=== PATIENT | male | born 1995 | race Asian ===

== ENCOUNTER 2018-05-12 11:38 | Inpatient (IN) | payer OTHER ==
[2018-05-12 12:09] LABS: HEMATOCRIT 48.9 % (42.0-52.0); HEMOGLOBIN 16.4 g/dl (13.5-17.5); MEAN CORPUSCULAR HEMOGLOBIN 29.8 pg (27.0-33.0); MEAN CORPUSCULAR HGB CONC 33.5 g/dl (32.0-36.5); MEAN CORPUSCULAR VOLUME 88.7 fl (80.0-96.0); PLATELET COUNT, AUTOMATED 239 10^3/uL (150-450); RED BLOOD COUNT 5.51 10^6/uL (4.30-6.10); RED CELL DISTRIBUTION WIDTH 11.6 % (11.5-14.5); WHITE BLOOD COUNT 10.8 10^3/uL (4.0-10.0)
[2018-05-12 12:26] LABS: AMPHETAMINES LEVEL URINE NEGATIVE (NEGATIVE); BARBITURATES URINE NEGATIVE (NEGATIVE); BENZODIAZEPINES URINE NEGATIVE (NEGATIVE); CANNABINOIDS URINE NEGATIVE (NEGATIVE); COCAINE METABOLITE URINE NEGATIVE (NEGATIVE); METHADONE URINE NEGATIVE (NEGATIVE); OPIATES URINE NEGATIVE (NEGATIVE); PHENCYCLIDINE URINE NEGATIVE (NEGATIVE)
[2018-05-12 12:37] LABS: ALBUMIN 4.6 GM/DL (3.2-5.2); ALBUMIN/GLOBULIN RATIO 1.28 (1.00-1.93); ALKALINE PHOSPHATASE 72 U/L (45-117); ALT/SGPT 32 U/L (12-78); ANION GAP 9 MEQ/L (8-16); AST/SGOT 21 U/L (7-37); BILIRUBIN,DIRECT 0.2 MG/DL (0.0-0.2); BILIRUBIN,TOTAL 0.7 MG/DL (0.2-1.0); BLOOD UREA NITROGEN 13 MG/DL (7-18); CALCIUM LEVEL 8.9 MG/DL (8.5-10.1); CARBON DIOXIDE LEVEL 27 MEQ/L (21-32); CHLORIDE LEVEL 108 MEQ/L (98-107); CREATININE FOR GFR 1.04 MG/DL (0.70-1.30); ETHYL ALCOHOL (ETHANOL) 0.005 % (0.000-0.010); GLOMERULAR FILTRATION RATE > 60.0 (>60); GLUCOSE, FASTING 92 MG/DL (70-100); POTASSIUM SERUM 3.8 MEQ/L (3.5-5.1); SALICYLATE LEVEL < 1.7 MG/DL (5.0-30.0); SODIUM LEVEL 144 MEQ/L (136-145); THYROID STIMULATING HORMONE 0.781 uIU/ML (0.358-3.740); TOTAL PROTEIN 8.2 GM/DL (6.4-8.2)
[2018-05-12 12:40] LABS: ACETAMINOPHEN LEVEL < 2.0 UG/ML (10.0-30.0)
[2018-05-12] MEDS ORDERED: MAALOX 30 ML SUSP *UDC PO (18:00)
[2018-05-12] MEDS ORDERED: MOM 30ML SUSPENSION UDC PO (18:00)
[2018-05-13] MEDS: ACETAMINOPHEN TAB 650MG DOSE (2X325MG) PO (15:47)
[2018-05-14] MEDS: SERTRALINE HCL 50 MG TAB PO (16:13)
[2018-05-14] MEDS ORDERED: hydrOXYzine 50 MG TAB PO (16:15)
[2018-05-15] MEDS: SERTRALINE HCL 50 MG TAB PO (09:24)
[2018-05-16] MEDS: SERTRALINE HCL 25 MG TABLET PO (08:42)
[2018-05-17] MEDS: SERTRALINE HCL 25 MG TABLET PO (09:05)
[2018-05-18] MEDS: VENLAFAXINE **XR** 37.5 MG CAPSULE PO (09:16)
[2018-05-19] MEDS: VENLAFAXINE **XR** 37.5 MG CAPSULE PO (08:38)
[2018-05-20] MEDS: VENLAFAXINE **XR** 75MG CAPSULE PO (09:35)
[2018-05-21] MEDS: VENLAFAXINE **XR** 75MG CAPSULE PO (08:37)
[2018-05-22] MEDS: VENLAFAXINE **XR** 75MG CAPSULE PO (08:14)
[2018-05-23] MEDS: VENLAFAXINE **XR** 75MG CAPSULE PO (08:21)
[2018-05-24] MEDS: VENLAFAXINE **XR** 75MG CAPSULE PO (08:07)
[2018-05-24] MEDS: ACETAMINOPHEN TAB 650MG DOSE (2X325MG) PO (21:19)
[2018-05-24] MEDS: traZODone 50 MG TAB PO (21:52)
[2018-05-25] MEDS: VENLAFAXINE **XR** 75MG CAPSULE PO (08:11)
[2018-05-25] MEDS: ACETAMINOPHEN TAB 650MG DOSE (2X325MG) PO ×2 (15:30→21:32)
[2018-05-25] MEDS: diphenhydrAMINE 50 MG CAP PO (21:31)
[2018-05-26] MEDS: VENLAFAXINE **XR** 75MG CAPSULE PO (08:21)
[2018-05-26] MEDS ORDERED: traZODone 50 MG TAB PO (13:15)
[2018-05-26] MEDS ORDERED: NICOTINE POLACRILEX 2 MG GUM PO ×3 (14:45→16:15)
[2018-05-26] MEDS: diphenhydrAMINE 50 MG CAP PO (21:26)
[2018-05-27] MEDS: VENLAFAXINE **XR** 75MG CAPSULE PO (08:25)
== END 2018-05-27 10:45 | disposition home or self-care (01) | DRG 885 ==
LOC: M PSY 05-17 08:32 → M ED 11:38 → M ED INP 14:09 → M PSY 15:16
DX: F33.9 Major depressive disorder, recurrent, unspecified (principal); R45.851 Suicidal ideations; F41.1 Generalized anxiety disorder; Z79.899 Other long term (current) drug therapy

== ENCOUNTER 2018-06-08 16:58 | Inpatient (IN) | payer OTHER ==
[2018-06-08 17:44] LABS: HEMATOCRIT 49.2 % (42.0-52.0); HEMOGLOBIN 16.8 g/dl (13.5-17.5); MEAN CORPUSCULAR HEMOGLOBIN 30.1 pg (27.0-33.0); MEAN CORPUSCULAR HGB CONC 34.1 g/dl (32.0-36.5); PLATELET COUNT, AUTOMATED 243 10^3/uL (150-450); RED BLOOD COUNT 5.59 10^6/uL (4.30-6.10); RED CELL DISTRIBUTION WIDTH 11.7 % (11.5-14.5)
[2018-06-08 18:16] LABS: AMPHETAMINES LEVEL URINE NEGATIVE (NEGATIVE); BARBITURATES URINE NEGATIVE (NEGATIVE); BENZODIAZEPINES URINE NEGATIVE (NEGATIVE); CANNABINOIDS URINE NEGATIVE (NEGATIVE); COCAINE METABOLITE URINE NEGATIVE (NEGATIVE); METHADONE URINE NEGATIVE (NEGATIVE); OPIATES URINE NEGATIVE (NEGATIVE); PHENCYCLIDINE URINE NEGATIVE (NEGATIVE)
[2018-06-08 18:23] LABS: ALBUMIN 4.8 GM/DL (3.2-5.2); ALBUMIN/GLOBULIN RATIO 1.26 (1.00-1.93); ALKALINE PHOSPHATASE 64 U/L (45-117); ALT/SGPT 31 U/L (12-78); ANION GAP 12 MEQ/L (8-16); AST/SGOT 16 U/L (7-37); BILIRUBIN,DIRECT 0.1 MG/DL (0.0-0.2); BILIRUBIN,TOTAL 0.6 MG/DL (0.2-1.0); BLOOD UREA NITROGEN 16 MG/DL (7-18); CALCIUM LEVEL 8.7 MG/DL (8.5-10.1); CARBON DIOXIDE LEVEL 21 MEQ/L (21-32); CHLORIDE LEVEL 109 MEQ/L (98-107); CREATININE FOR GFR 0.96 MG/DL (0.70-1.30); ETHYL ALCOHOL (ETHANOL) < 0.003 % (0.000-0.010); GLOMERULAR FILTRATION RATE > 60.0 (>60); GLUCOSE, FASTING 91 MG/DL (70-100); SALICYLATE LEVEL 2.3 MG/DL (5.0-30.0); SODIUM LEVEL 142 MEQ/L (136-145); TOTAL PROTEIN 8.6 GM/DL (6.4-8.2)
[2018-06-08 18:26] LABS: ACETAMINOPHEN LEVEL < 2.0 UG/ML (10.0-30.0)
[2018-06-08] MEDS ORDERED: MAALOX 30 ML SUSP *UDC PO (23:45)
[2018-06-08] MEDS ORDERED: ACETAMINOPHEN TAB 650MG DOSE (2X325MG) PO (23:45)
[2018-06-08] MEDS ORDERED: diphenhydrAMINE 25 MG CAP PO (23:45)
[2018-06-08] MEDS ORDERED: MOM 30ML SUSPENSION UDC PO (23:45)
[2018-06-09] MEDS: VENLAFAXINE **XR** 75MG CAPSULE PO (08:08)
[2018-06-09] MEDS: diphenhydrAMINE 50 MG CAP PO (20:33)
[2018-06-10] MEDS: VENLAFAXINE **XR** 75MG CAPSULE PO (07:55)
[2018-06-10] MEDS: diphenhydrAMINE 50 MG CAP PO (20:48)
[2018-06-11] MEDS: VENLAFAXINE **XR** 75MG CAPSULE PO (08:23)
== END 2018-06-11 11:25 | disposition home or self-care (01) | DRG 885 ==
LOC: M PSY 06-09 → M ED 16:58 → M ED INP 19:54
DX: F33.9 Major depressive disorder, recurrent, unspecified (principal); R45.851 Suicidal ideations; F41.1 Generalized anxiety disorder; G47.00 Insomnia, unspecified

== ENCOUNTER 2018-07-14 21:33 | Inpatient (IN) | payer OTHER ==
[2018-07-14 22:22] LABS: HEMATOCRIT 44.4 % (42.0-52.0); HEMOGLOBIN 14.7 g/dl (13.5-17.5); MEAN CORPUSCULAR HEMOGLOBIN 29.5 pg (27.0-33.0); MEAN CORPUSCULAR HGB CONC 33.1 g/dl (32.0-36.5); MEAN CORPUSCULAR VOLUME 89.2 fl (80.0-96.0); PLATELET COUNT, AUTOMATED 210 10^3/uL (150-450); RED BLOOD COUNT 4.98 10^6/uL (4.30-6.10); RED CELL DISTRIBUTION WIDTH 11.9 % (11.5-14.5); WHITE BLOOD COUNT 6.9 10^3/uL (4.0-10.0)
[2018-07-14 22:50] LABS: AMPHETAMINES LEVEL URINE NEGATIVE (NEGATIVE); BARBITURATES URINE NEGATIVE (NEGATIVE); BENZODIAZEPINES URINE NEGATIVE (NEGATIVE); CANNABINOIDS URINE NEGATIVE (NEGATIVE); COCAINE METABOLITE URINE NEGATIVE (NEGATIVE); METHADONE URINE NEGATIVE (NEGATIVE); OPIATES URINE NEGATIVE (NEGATIVE); PHENCYCLIDINE URINE NEGATIVE (NEGATIVE)
[2018-07-14 23:01] LABS: ACETAMINOPHEN LEVEL < 2.0 UG/ML (10.0-30.0); ALBUMIN 4.4 GM/DL (3.2-5.2); ALBUMIN/GLOBULIN RATIO 1.33 (1.00-1.93); ALKALINE PHOSPHATASE 68 U/L (45-117); ALT/SGPT 31 U/L (12-78); ANION GAP 6 MEQ/L (8-16); AST/SGOT 13 U/L (7-37); BILIRUBIN,DIRECT 0.1 MG/DL (0.0-0.2); BILIRUBIN,TOTAL 0.5 MG/DL (0.2-1.0); BLOOD UREA NITROGEN 12 MG/DL (7-18); CALCIUM LEVEL 8.5 MG/DL (8.5-10.1); CARBON DIOXIDE LEVEL 31 MEQ/L (21-32); CHLORIDE LEVEL 106 MEQ/L (98-107); CREATININE FOR GFR 0.92 MG/DL (0.70-1.30); ETHYL ALCOHOL (ETHANOL) < 0.003 % (0.000-0.010); GLOMERULAR FILTRATION RATE > 60.0 (>60); GLUCOSE, FASTING 90 MG/DL (70-100); POTASSIUM SERUM 3.8 MEQ/L (3.5-5.1); SALICYLATE LEVEL < 1.7 MG/DL (5.0-30.0); SODIUM LEVEL 143 MEQ/L (136-145); TOTAL PROTEIN 7.7 GM/DL (6.4-8.2)
[2018-07-14] MEDS ORDERED: MAALOX 30 ML SUSP *UDC PO (23:45)
[2018-07-14] MEDS ORDERED: MOM 30ML SUSPENSION UDC PO (23:45)
[2018-07-15] MEDS: VENLAFAXINE **XR** 75MG CAPSULE PO (08:52)
[2018-07-16] MEDS: VENLAFAXINE **XR** 75MG CAPSULE PO (08:20)
[2018-07-17] MEDS: VENLAFAXINE **XR** 75MG CAPSULE PO (08:45)
[2018-07-18] MEDS: VENLAFAXINE **XR** 75MG CAPSULE PO (08:19)
[2018-07-19] MEDS ORDERED: PILL CRUSHER/CUTTER 1 EACH XX (02:30)
[2018-07-19] MEDS: VENLAFAXINE **XR** 75MG CAPSULE PO (08:10)
[2018-07-20] MEDS: VENLAFAXINE **XR** 75MG CAPSULE PO (08:19)
[2018-07-21] MEDS: VENLAFAXINE **XR** 75MG CAPSULE PO (08:03)
[2018-07-21] MEDS: ACETAMINOPHEN TAB 650MG DOSE (2X325MG) PO (20:08)
[2018-07-21] MEDS: traZODone 100 MG TAB PO (20:08)
[2018-07-22] MEDS: VENLAFAXINE **XR** 75MG CAPSULE PO (08:09)
[2018-07-22] MEDS: ACETAMINOPHEN TAB 650MG DOSE (2X325MG) PO (08:10)
[2018-07-23] MEDS ORDERED: ARIPiprazole 10 MG TAB PO (09:00)
== END 2018-07-22 13:10 | disposition home or self-care (01) | DRG 885 ==
LOC: M PSY 07-15 08:15 → M ED 21:33 → M ED INP 23:39
DX: F33.2 Major depressive disorder, recurrent severe without psychotic features (principal); R45.851 Suicidal ideations; F41.1 Generalized anxiety disorder; G47.00 Insomnia, unspecified; Z79.899 Other long term (current) drug therapy

== ENCOUNTER → 2018-09-04 | Outpatient (CLI) | payer OTHER | LOC: M SLEEP 19:30 | DX: R40.0 Somnolence (principal) | CPT/HCPCS: 95810 ==

== ENCOUNTER 2018-11-03 22:51 | Inpatient (IN) | payer OTHER ==
[~2018-11-03] VITALS: Ht 180.3 cm; Wt 86.1 kg
[~2018-11-03 22:51] MED LIST: ARIP10TAB PO; ARIP5TA PO; DIPH50CA PO; SERT25TA PO; TRAZ-160 PO; TRAZ10TA PO; TRAZO50TA PO; TYLE325T5 PO; TYLE500T78 PO; VENL150C43 PO; VENL75CA47 PO
[2018-11-03 23:59] LABS: HEMATOCRIT 45.7 % (42.0-52.0); HEMOGLOBIN 15.5 g/dl (13.5-17.5); MEAN CORPUSCULAR HEMOGLOBIN 30.2 pg (27.0-33.0); MEAN CORPUSCULAR HGB CONC 33.9 g/dl (32.0-36.5); MEAN CORPUSCULAR VOLUME 88.9 fl (80.0-96.0); PLATELET COUNT, AUTOMATED 264 10^3/uL (150-450); RED BLOOD COUNT 5.14 10^6/uL (4.30-6.10); WHITE BLOOD COUNT 8.3 10^3/uL (4.0-10.0)
[2018-11-04 00:30] LABS: AMPHETAMINES LEVEL URINE NEGATIVE (NEGATIVE); BARBITURATES URINE NEGATIVE (NEGATIVE); BENZODIAZEPINES URINE NEGATIVE (NEGATIVE); CANNABINOIDS URINE NEGATIVE (NEGATIVE); COCAINE METABOLITE URINE NEGATIVE (NEGATIVE); METHADONE URINE NEGATIVE (NEGATIVE); OPIATES URINE NEGATIVE (NEGATIVE); PHENCYCLIDINE URINE NEGATIVE (NEGATIVE)
[2018-11-04 00:45] LABS: ACETAMINOPHEN LEVEL < 2.0 UG/ML (10.0-30.0); ALBUMIN 4.2 GM/DL (3.2-5.2); ALT/SGPT 42 U/L (12-78); BILIRUBIN,DIRECT 0.1 MG/DL (0.0-0.2); BILIRUBIN,TOTAL 0.4 MG/DL (0.2-1.0); BLOOD UREA NITROGEN 14 MG/DL (7-18); CALCIUM LEVEL 8.4 MG/DL (8.5-10.1); CARBON DIOXIDE LEVEL 30 MEQ/L (21-32); CHLORIDE LEVEL 106 MEQ/L (98-107); CREATININE FOR GFR 0.95 MG/DL (0.70-1.30); ETHYL ALCOHOL (ETHANOL) < 0.003 % (0.000-0.010); GLOMERULAR FILTRATION RATE > 60.0 (>60); GLUCOSE, FASTING 93 MG/DL (70-100); POTASSIUM SERUM 4.2 MEQ/L (3.5-5.1); SALICYLATE LEVEL 3.2 MG/DL (5.0-30.0); SODIUM LEVEL 141 MEQ/L (136-145); TOTAL PROTEIN 7.5 GM/DL (6.4-8.2)
[2018-11-04] MEDS ORDERED: traZODone 100 MG TAB PO PRN (01:15)
[2018-11-04] MEDS ORDERED: MAALOX 30 ML SUSP *UDC PO PRN (01:15)
[2018-11-04] MEDS ORDERED: MOM 30ML SUSPENSION UDC PO PRN (01:15)
[2018-11-04] MEDS ORDERED: ACETAMINOPHEN TAB 650MG DOSE (2X325MG) PO PRN (01:15)
[2018-11-04] MEDS ORDERED: TRAZ-163 PO (01:28)
[2018-11-04] MEDS ORDERED: VENL75CA47 PO (01:28)
[2018-11-04] MEDS ORDERED: ABIL10TA9 PO (01:28)
[2018-11-04 01:53] VITALS: BP 137/82
[2018-11-04 06:47] VITALS: BP 124/60
[2018-11-04] MEDS: VENLAFAXINE **XR** 75MG CAPSULE PO SCH (09:27)
[2018-11-04] MEDS: ARIPiprazole 10 MG TAB PO SCH (09:28)
--- NOTE | 2018-11-04 10:41 | HPEPDOC ---
[facility] Medical History & Physical Date of Admission Nov 04, 2018 History and Physical PCP: [facility] ATTENDING: Dr. Jackie Leblanc HPI: 23 yo M admitted to [facility] for unspecified depressive disorder, being medically examined today. No acute medical complaints today. Denies any fevers, chills, weakness, fatigue, ESTRADA, CP, SOB, cough, palpitations, abdominal pain, N/V/D or changes in bowel or bladder habits. PMHx: Anxiety Depression History of SI Insomnia PSHX: Denies SOCHX: Resides in: [facility], from [place] Marital Status: Single Kids: None Employment: Active duty Tobacco use: Denies ETOH: One to 2 per week Illicit Drugs: Denies IV Drug Use: Denies Tattoos done unprofessionally: Denies FAMHX: Mother: Alive, well Father: Alive, well Siblings: One sister Alive, well Children: None Unexpected deaths due to medical reasons: None. ROS: As noted in HPI, otherwise 11pt ROS of systems reviewed and unremarkable. PE: GEN: 23 yo M, appears stated age. Well-nourished, well developed. No acute distress. Alert and oriented x 3. Pleasant, interactive. HEENT: Normocephalic, atraumatic. Pupils are equal, round, and reactive to light. Extraocular movements are intact. No nystagmus appreciated. Sclera are no nicteric. Conjunctiva without injection. Nose midline. Nasal turbinates without bogginess. EACs both patent BL. TMs both visualized and lala with good cone of light, no bulging or erythema. No facial asymmetry. Moist mucous membranes. Dentition fair. Pharynx pink and moist, no cobblestoning. Neck supple, trachea midline. No lymphadenopathy or thyromegaly appreciated. CHEST: Regular rate and rhythm, +S1, +S2 LUNGS: Clear to auscultation bilaterally. No wheezes, rales, or rhonchi. Breathing appears symmetric and easy. Patient is speaking in full sentences. No accessory muscle use. ABD: Round, soft, non-tender, non-distended. +Bowel sounds throughout. No rebound or guarding. No costovertebral angle tenderness. EXT: Pulses 2+ bilaterally dorsalis pedis and radial. No lower extremity edema appreciated. SKIN: [place], dry, warm. Capillary refill <2sec. No rashes. NEURO: Alert and oriented x 3. Cranial nerves III-XII are intact. No focal deficits appreciated. EKG: SINUS RHYTHM WITH SINUS ARRHYTHMIA Normal Electronically Signed On 06-10-2018 17:04:22 EDT by Roosevelt Escobedo&Vimal: 23 yo M admitted to [facility] for unspecified depressive disorder 1. Psych. Plan per Psychiatry. EKG on file. 2. Follow up with PCP on discharge. 3. Staff member Ed present throughout exam. Vital Signs Vital Signs Date Time Temp Pulse Resp B/P (MAP) Pulse Ox O2 Delivery O2 Flow Rate FiO2 11/04/18 06:47 98.4 61 16 124/60 (81) 11/04/18 00:53 100 Room Air Laboratory Data Labs 24H Laboratory Tests 2 11/03/18 23:44: Nucleated Red Blood Cells % (auto) 0.0, Anion Gap 5L, Glomerular Filtration Rate > 60.0, Calcium Level 8.4L, Aspartate Amino Transf (AST/SGOT) 12, Alanine Aminotransferase (ALT/SGPT) 42, Alkaline Phosphatase 71, Total Bilirubin 0.4, Direct Bilirubin 0.1, Total Protein 7.5, Albumin 4.2, Albumin/Globulin Ratio 1.27, Thyroid Stimulating Hormone (TSH) 2.390, Salicylates Level 3.2L, Urine Amp hetamines Screen NEGATIVE, Urine Benzodiazepines Screen NEGATIVE, Urine Opiates Screen NEGATIVE, Urine Methadone Screen NEGATIVE, Acetaminophen Level < 2.0L, Urine Barbiturates Screen NEGATIVE, Urine Phencyclidine Screen NEGATIVE, Urine Cocaine Metabolite Screen NEGATIVE, Urine Cannabinoids Screen NEGATIVE, Ethyl Alcohol Level < 0.003 CBC/BMP Laboratory Tests 11/03/18 23:44 Red Blood Count 5.14, Mean Corpuscular Volume 88.9, Mean Corpuscular Hemoglobin 30.2, Mean Corpuscular Hemoglobin Concent 33.9, Red Cell Distribution Width 11.1 L Home Medications Scheduled Aripiprazole (Abilify) 10 Mg Tab, 10 MG PO DAILY Venlafaxine HCl (Venlafaxine HCl ER) 75 Mg Capcr, 300 MG PO DAILY Scheduled PRN Acetaminophen (Tylenol Extra Strength) 500 Mg Tab, 1,000 MG PO Q6H PRN for HEADACHE Trazodone HCl (Trazodone HCl) 100 Mg Tab, 100 MG PO QHS PRN for INSOMNIA Allergies Coded Allergies: No Known Allergies (Unverified , 9/18/18) Ayala Manuel Nov 04, 2018 10:41
--- NOTE | 2018-11-04 10:48 | MHHPEPDOC ---
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 He endorsed SI with plan to hang himself. Otherwise, he has been compliant with his meds and follow-up at [facility]. Pt reported drinking "a couple of beers" weekly, bal was negative on admission. Pt seen and states he's been feeling suicidal and "I feel like taking my aggression out on others." States his meds are good and denies overt depression. Pt states he's been angry at others and himself as "I did some things wrong and pushed a close friend away from me b/c I felt like she was trying to leaving me." Pt denies that he and his female friend were in a relationship. States he pushed her away by threatening suicide and now regrets it. Pt states he attempted to say he's sorry and says she's scared of him. Encouraged to call his friend while he's here and attempt apologizing to her again. Denies SI/HI here, hallucinations, delusions. Feels safe here. Psychiatric Review of Systems Depression (2 or more weeks): depressed mood, feelings of excess/guilt (guilt), feelings of worthlesness, difficulty concentrating, suicidal thoughts Joanna (4 or more days of): irritable/elevated mood, denies Psychosis: denies PTSD: denies Anxiety: situational anxiety, stressor related anxiety Anxiety/ 6 months or more of: difficulty concentrating, irritability Past Psychiatric History Previous Psychiatric Diagnosis: Persistent Depressive Disorder, Major Depressive Disorder, YELENA Previous Psychiatric Admissions: has been hospitalized at [facility] on 04/2018, 05/2018, and 07/22/18 Suicide Attempts: Denies. Psychiatric Follow-up: [facility] Psychiatric medications: Venlafaxine 300mg daily, abilify 10mg daily, trazodone 100mg qhs Past Medical History Medical Problems denies Head Injury: No Seizures: No Hospitalizations: Yes Surgeries: No Family Medical/Psychiatric HX Medical Problems denies Psychiatric Disorders: No Addiction: No Suicide Attemps/Completions: No Addiction History alcohol (once weekly "a couple of beers" by himself; encouraged not to drink alone as can lead to dependance) Social History Childhood: He had a good childhood, his parents and then, went back together. he feels supported by his family. He talks to them monthly. He has a younger sister, he doesn't talk much to her, because he feels she is much yo gianni than him and they have not much in common. His academic performance in school was good (B's and C's, he was never bullied, never singled out by classmates Abuse/Trauma: Denies Current Living Situation: [place]. Education: HS diploma. Employment: Active duty soldier. Social Support: Mother and friends. Legal: Denies. Marital: single, no children. Mental Status Examination General Appearance: well groomed, appears stated age, hospital scubs/clothing Build: average Demeanor: withdrawn Eye Contact: average Activity: average Behavior: cooperative, withdrawn Speech: clear, reg/rate,rhythm,volume, non-spontaneous Mood: depressed, anxious, irritable Mood "I did something I shouldn't have." Affect: constricted, flat, congruent, anxious Thought Process: logical/linear, depressed Thought Content (Delusions): none reported, denies SI, HI, AVH Thought Content (Other): none reported, appropriate Thought Content (Aggressive): none reported Perception (Hallucinations): none reported Perception (Other): none reported Cognition (Impairment of): none reported Cognition(Intelligence Est.): average Oriented: Awake, Alert, Oriented times three Insight: fair Judgment: Fair Psychosis: Denies Diagnoses 1. Major Depressive Disorder, recurrent, severe 2. Generalized anxiety disorder Assessment Pt with a history of depression and anxiety endorsing worsening of symptoms due to feeling guilt about pushing a female friend away by telling her he was suicidal that he regrets now b/c she doesn't want anything to do with me he states. Agreeable to attempting again to make amends to his friend over the phone while he's here. Pt is angry with himself for his actions which is why he was feeling suicidal and "aggressive toward others." States his meds have been beneficial and he's tolerating them well. Denies SI/HI here, hallucinations, delusions. Feels safe here. Initial Treatment Plan 1. Patient was admitted on a 939 status. 2. Complete history was obtained. 3. With patients permission, family will be contacted and database will be expanded. 4. Patients medication regimen will be reviewed and changed accordingly. 5. Patient will be provided with protected environment. 6. Patient will be treated with individual, group, and milieu therapies. 7. Patient will receive supportive psych-education. 8. Discharge planning will commence immediately. 9. Outpatient follow-up treatment will be strongly recommended. 10. The initial treatment plan will focus initially on: * Depression. * Risk for suicide. * Substance abuse. 11. resume effexor xr 300mg daily, abilify 10mg daily, trazodone 100mg qhs prn insomnia ESTIMATED LENGTH OF STAY: 3-5 DAYS. TIME SPENT COUNSELING AND COORDINATING INITIAL CARE: 60 minutes. Vital Signs Vital Signs Date Time Temp Pulse Resp B/P (MAP) Pulse Ox O2 Delivery O2 Flow Rate FiO2 11/04/18 06:47 98.4 61 16 124/60 (81) 11/04/18 00:53 100 Room Air Laboratory Data 24H Labs Laboratory Tests 2 11/03/18 23:44: Nucleated Red Blood Cells % (auto) 0.0, Anion Gap 5L, Glomerular Filtration Rate > 60.0, Calcium Level 8.4L, Aspartate Amino Transf (AST/SGOT) 12, Alanine Aminotransferase (ALT/SGPT) 42, Alkaline Phosphatase 71, Total Bilirubin 0.4, Direct Bilirubin 0.1, Total Protein 7.5, Albumin 4.2, Albumin/Globulin Ratio 1.27, Thyroid Stimulating Hormone (TSH) 2.390, Salicylates Level 3.2L, Urine Amphetamines Screen NEGATIVE, Urine Benzodiazepines Screen NEGATIVE, Urine Opiates Screen NEGATIVE, Urine Methadone Screen NEGATIVE, Acetaminophen Level < 2.0L, Urine Barbiturates Screen NEGATIVE, Urine Phencyclidine Screen NEGATIVE, Urine Cocaine Metabolite Screen NEGATIVE, Urine Cannabinoids Screen NEGATIVE, Ethyl Alcohol Level < 0.003 CBC/BMP Laboratory Tests 11/03/18 23:44 Red Blood Count 5.14, Mean Corpuscular Volume 88.9, Mean Corpuscular Hemoglobin 30.2, Mean Corpuscular Hemoglobin Concent 33.9, Red Cell Distribution Width 11.1 L Medications Scheduled Aripiprazole (Abilify) 10 Mg Tab, 10 MG PO DAILY, (Reported) Venlafaxine HCl (Venlafaxine HCl ER) 75 Mg Capcr, 300 MG PO DAILY, (Reported) Scheduled PRN Acetaminophen (Tylenol Extra Strength) 500 Mg Tab, 1,000 MG PO Q6H PRN for HEADACHE, (Reported) Trazodone HCl (Trazodone HCl) 100 Mg Tab, 100 MG PO QHS PRN for INSOMNIA, (Reported) Allergies Coded Allergies: No Known Allergies (Unverified , 07/14/18) MELISSA PUGH DO Nov 04, 2018 10:48
[2018-11-04 18:00] VITALS: BP 114/62
[2018-11-05 07:27] VITALS: BP 122/62
[2018-11-05] MEDS: VENLAFAXINE **XR** 75MG CAPSULE PO SCH (08:22)
[2018-11-05] MEDS: ARIPiprazole 10 MG TAB PO SCH (08:22)
--- NOTE | 2018-11-05 10:23 | MHIPNPDOC ---
[facility] Progress Note Progress Note DATE OF SERVICE: 11/05/18 HISTORY: Patient is a 23 -year-old , AD, male, with a history of depression, multiple admissions [facility] in past, suicidal gesture holding knife to wrist 04/2018 who was brought to ED after expressing SI to his Mateo. 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 He endorsed SI with plan to hang himself. Otherwise, he has been compliant with his meds and follow-up at [facility]. Pt reported drinking "a couple of beers" weekly, bal was negative on admission. Pt seen and states he's been feeling suicidal and "I feel like taking my aggression out on others." States his meds are good and denies overt depression. Pt states he's been angry at others and himself as "I did some things wrong and pushed a close friend away from me b/c I felt like she was trying to leaving me." Pt denies that he and his female friend were in a relationship. States he pushed her away by threatening suicide and now regrets it. Pt states he attempted to say he's sorry and says she's scared of him. Encouraged to call his friend while he's here and attempt apologizing to her again. Denies SI/HI here, hallucinations, delusions. Feels safe he VITAL SIGNS: See below. NEW TEST RESULTS:See below. CURRENT MEDICATIONS: See below. MENTAL STATUS EXAMINATION: General Appearance: well groomed, appears stated age, hospital scrubs/clothing Build: average Demeanor: cooperative, calm Eye Contact: average Activity: average Behavior: cooperative Speech: clear, reg/rate,rhythm,volume, spontaneous Mood: less depressed Mood "better" Affect: improved range, congruent Thought Process: logical/linear, less depressed Thought Content (Delusions): none reported, denies SI, HI, AVH Thought Content (Other): none reported, appropriate Thought Content (Aggressive): none reported Perception (Hallucinations): none reported Perception (Other): none reported Cognition (Impairment of): none reported Cognition(Intelligence Est.): average Oriented: Awake, Alert, Oriented times three Insight: fair Judgment: Fair Psychosis: Denies DIAGNOSES: 1. Major Depressive Disorder, recurrent, severe 2. Generalized anxiety disorder ASSESSMENT:Pt seen and states that his mood is better. States he slept well last night. Pt isolating in bed attempting to sleep during the day causing him to not call his friend or go to groups. Sleeping b/c he wants to not out of depression. Advised to go to groups, call friend, and not isolate in room or will be locked out to participate in his treatment. Feels he is tolerating his medications and they're beneficial. He is attending groups and finding them helpful. He denies anxiety, insomnia, SI/HI, hallucinations, delusions. Pt feels safe here. MANAGEMENT PLAN: continue current plan. Medications: effexor xr 300mg daily abilify 10mg daily trazodone 100mg qhs prn insomnia TIME SPENT: 30 minutes. Vital Signs Vital Signs Date Time Temp Pulse Resp B/P (MAP) Pulse Ox O2 Delivery O2 Flow Rate FiO2 11/05/18 07:27 98.4 63 16 122/62 (82) 11/04/18 00:53 100 Room Air Current Medications Current Medications Acetaminophen (Tylenol Tab) 650 mg Q6HP PRN PO HEADACHE or DISCOMFORT; Start 11/04/18 at 01:15 Al Hydrox/Mg Hydrox/Simethicone (Mylanta) 30 ml Q4HP PRN PO HEARTBURN/INDIGESTION; Start 11/04/18 at 01:15 Aripiprazole (AbiLIFY) 10 mg DAILY PO Last administered on 11/05/18at 08:22; Start 11/04/18 at 09:00 Home Med (Med Rec Complete!) ASDIRECTED XX ; Start 11/04/18 at 01:30; Stop 11/04/18 at 01:30; Status DC Magnesium Hydroxide (Milk Of Magnesia) 30 ml DAILYPRN PRN PO CONSTIPATION; Start 11/04/18 at 01:15 Trazodone HCl (Desyrel) 100 mg QHSP PRN PO INSOMNIA; Start 11/04/18 at 01:15 Venlafaxine HCl (Effexor Xr) 300 mg DAILY PO Last administered on 11/05/18at 08:22; Start 11/04/18 at 09:00 Allergies Coded Allergies: No Known Allergies (Unverified , 07/14/18) MELISSA PUGH DO Nov 05, 2018 10:23
[2018-11-05 12:00] VITALS: BP 110/56
[2018-11-05 18:00] VITALS: BP 117/59
[2018-11-05 21:49] VITALS: BP 122/64
[2018-11-06 06:00] VITALS: BP 108/54
[2018-11-06] MEDS: ARIPiprazole 10 MG TAB PO SCH (08:36)
[2018-11-06] MEDS: VENLAFAXINE **XR** 75MG CAPSULE PO SCH (08:37)
--- NOTE | 2018-11-06 09:50 | MHIPNPDOC ---
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 He endorsed SI with plan to hang himself. Otherwise, he has been compliant with his meds and follow-up at [facility]. Pt reported drinking "a couple of beers" weekly, bal was negative on admission. Pt seen and states he's been feeling suicidal and "I feel like taking my aggression out on others." States his meds are good and denies overt depression. Pt states he's been angry at others and himself as "I did some things wrong and pushed a close friend away from me b/c I felt like she was trying to leaving me." Pt denies that he and his female friend were in a relationship. States he pushed her away by threatening suicide and now regrets it. Pt states he attempted to say he's sorry and says she's scared of him. Encouraged to call his friend while he's here and attempt apologizing to her again. Denies SI/HI here, hallucinations, delusions. Feels safe he VITAL SIGNS: See below. NEW TEST RESULTS:See below. CURRENT MEDICATIONS: See below. MENTAL STATUS EXAMINATION: General Appearance: well groomed, appears stated age, hospital scrubs/clothing Build: average Demeanor: cooperative, calm Eye Contact: average Activity: average Behavior: cooperative Speech: clear, reg/rate,rhythm,volume, spontaneous Mood: less depressed Mood "ok" Affect: improved range, congruent Thought Process: logical/linear, less depressed Thought Content (Delusions): none reported, denies SI, HI, AVH Thought Content (Other): none reported, appropriate Thought Content (Aggressive): none reported Perception (Hallucinations): none reported Perception (Other): none reported Cognition (Impairment of): none reported Cognition(Intelligence Est.): average Oriented: Awake, Alert, Oriented times three Insight: fair Judgment: Fair Psychosis: Denies DIAGNOSES: 1. Major Depressive Disorder, recurrent, severe 2. Generalized anxiety disorder ASSESSMENT:Pt seen and states that his mood is ok. States he slept well last night. Pt attending groups yesterday and states he's learning coping skills but is unsure how they will be useful to him in the future after he's d/c. Encouraged to practise what he learns here so can learn to cope with depression and anxiety emotionally when he leaves better. States he'll try. Feels he is tolerating his medications and they're beneficial. He is attending groups and finding them helpful. He denies anxiety, insomnia, SI/HI, hallucinations, delusions. Pt feels safe here. MANAGEMENT PLAN: continue current plan. Medications: effexor xr 300mg daily abilify 10mg daily trazodone 100mg qhs prn insomnia TIME SPENT: 30 minutes. Vital Signs Vital Signs Date Time Temp Pulse Resp B/P (MAP) Pulse Ox O2 Delivery O2 Flow Rate FiO2 11/06/18 06:00 97.6 62 16 108/54 (72) Room Air 11/04/18 00:53 100 Current Medications Current Medications Acetaminophen (Tylenol Tab) 650 mg Q6HP PRN PO HEADACHE or DISCOMFORT; Start 11/04/18 at 01:15 Al Hydrox/Mg Hydrox/Simethicone (Mylanta) 30 ml Q4HP PRN PO HEARTBURN/INDIGESTION; Start 11/04/18 at 01:15 Aripiprazole (AbiLIFY) 10 mg DAILY PO Last administered on 11/06/18at 08:36; Start 11/04/18 at 09:00 Home Med (Med Rec Complete!) ASDIRECTED XX ; Start 11/04/18 at 01:30; Stop 11/04/18 at 01:30; Status DC Magnesium Hydroxide (Milk Of Magnesia) 30 ml DAILYPRN PRN PO CONSTIPATION; Start 11/04/18 at 01:15 Trazodone HCl (Desyrel) 100 mg QHSP PRN PO INSOMNIA; Start 11/04/18 at 01:15 Venlafaxine HCl (Effexor Xr) 300 mg DAILY PO Last administered on 11/06/18at 08:37; Start 11/04/18 at 09:00 Allergies Coded Allergies: No Known Allergies (Unverified , 07/14/18) MELISSA PUGH DO Nov 06, 2018 9:50 am
[2018-11-06 18:00] VITALS: BP 126/64
[2018-11-07 06:00] VITALS: BP 115/56
[2018-11-07] MEDS: VENLAFAXINE **XR** 75MG CAPSULE PO SCH (08:52)
[2018-11-07] MEDS: ARIPiprazole 10 MG TAB PO SCH (08:53)
--- NOTE | 2018-11-07 17:24 | MHIPN ---
DATE: 11/07/2018 CHIEF COMPLAINT: Says feels okay. SUBJECTIVE: Seen for followup. Indicates feels okay. It should be noted he is seen in the presence of staff. Says he feels calmer. Acknowledges feels less irritable, less anxious. Says sleep is good, as is appetite. Mostly gave one word answers. MENTAL STATUS EXAMINATION: He is neat. He is cooperative, but somewhat superficially so, and possibly guarded. Answers questions briefly, mostly with a yes or a no. He has a restricted affect, limited range. He has good eye contact. He denies any suicidal thoughts or intents. No homicidal ideas or intents. Currently no evidence of any psychosis. Cognition is grossly intact. Judgment and insight are questionable. ASSESSMENT: 1. Major depressive disorder, recurrent, severe. 2. Generalized anxiety disorder. Patient is guarded, superficially cooperative. PLAN: Continue current care and observation, and look at obtaining collateral information. Given the patient's guardedness and short replies, would monitor. VITAL SIGNS: Blood pressure 115/56, pulse 63, temperature 97.4.
[2018-11-07 18:00] VITALS: BP 120/73
[2018-11-08 06:00] VITALS: BP 118/54
[2018-11-08] MEDS: VENLAFAXINE **XR** 75MG CAPSULE PO SCH (08:06)
[2018-11-08] MEDS: ARIPiprazole 10 MG TAB PO SCH (08:06)
[2018-11-08 18:00] VITALS: BP 117/60
[2018-11-09 06:19] VITALS: BP 99/55
[2018-11-09] MEDS: VENLAFAXINE **XR** 75MG CAPSULE PO SCH (08:34)
[2018-11-09] MEDS: ARIPiprazole 10 MG TAB PO SCH (08:34)
--- NOTE | 2018-11-09 08:58 | MHDSPDOC ---
[facility] Discharge Summary Discharge Summary DATE OF ADMISSION: Nov 04, 2018 at 1:07 am DATE OF DISCHARGE: Nov 09, 2018 DISCHARGE DIAGNOSES: 1. Major Depressive Disorder, recurrent, severe 2. Generalized anxiety disorder REASON FOR ADMISSION: Patient is a 23 -year-old , AD, male, with a history of depression, multiple admissions [facility]PL[facility] BY [facility] in past, suicidal gesture holding knife to wrist 04/2018 who was brought to ED after expressing SI to his Mateo. 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 He endorsed SI with plan to hang himself. Otherwise, he has been compliant with his meds and follow-up at [facility]. Pt reported drinking "a couple of beers" weekly, bal was negative on admission. Pt seen and states he's been feeling suicidal and "I feel like taking my aggression out on others." States his meds are good and denies overt depression. Pt states he's been angry at others and himself as "I did some things wrong and pushed a close friend away from me b/c I felt like she was trying to leaving me." Pt denies that he and his female friend were in a relationship. States he pushed her away by threatening suicide and now regrets it. Pt states he attempted to say he's sorry and says she's scared of him. Encouraged to call his friend while he's here and attempt apologizing to her again. Denies SI/HI here, hallucinations, delusions. CONSULTANTS INVOLVED: none TREATMENT AND PROGRESS ON THE UNIT : Pt was admitted to [facility]ACED BY [facility], seen for psychiatric assessment and restarted on his outpatient medication effexor xr 300mg daiy and abilify 10mg daily. He was provided trazodone 100mg qhs prn insomnia. Pt found his medications beneficial and tolerated them well. He attended groups daily during his stay. His symptoms improved with treatment. On day of discharge he denied depression, anxiety, insomnia, SI/HI, hallucinations, delusions. He was discharged home after [facility] meeting with follow-up at [facility]. He felt safe for discharge. DISCHARGE ASSESSMENT: Pt seen and states that his mood is good and that he's looking forward to being discharged today with his Mateo. States he slept well last night. Pt attending groups and finding them beneficial. Feels he is tolerating his medications and they're beneficial. He denies depression, anxiety, insomnia, SI/HI, hallucinations, delusions. Pt feels safe to be discharged home with his Mateo. MENTAL STATUS EXAMINATION ON DISCHARGE: General Appearance: well groomed, appears stated age, hospital scrubs/clothing Build: average Demeanor: cooperative, calm Eye Contact: average Activity: average Behavior: cooperative Speech: clear, reg/rate,rhythm,volume, spontaneous Mood: euthymic Mood "good" Affect: euthymic, full, congruent Thought Process: logical/linear Thought Content (Delusions): none reported, denies SI, HI, AVH Thought Content (Other): none reported, appropriate Thought Content (Aggressive): none reported Perception (Hallucinations): none reported Perception (Other): none reported Cognition (Impairment of): none reported Cognition(Intelligence Est.): average Oriented: Awake, Alert, Oriented times three Insight: good Judgment: good Psychosis: Denies MEDICATIONS ON DISCHARGE: effexor xr 300mg daily abilify 10mg daily trazodone 100mg qhs prn insomnia PLAN/FOLLOWUP ARRANGEMENTS: D/c home with Mateo with follow-up at [facility]. The amount of time spent in the coordination of care for this patient was approximately 30 minutes. Vital Signs/I&Os Vital Signs Date Time Temp Pulse Resp B/P (MAP) Pulse Ox O2 Delivery O2 Flow Rate FiO2 11/09/18 06:19 97.7 62 14 99/55 (70) Room Air 11/04/18 00:53 100 Medications Scheduled Aripiprazole (Abilify) 10 Mg Tab, 10 MG PO DAILY, (Reported) Venlafaxine HCl (Venlafaxine HCl ER) 75 Mg Capcr, 300 MG PO DAILY, (Reported) Scheduled PRN Acetaminophen (Tylenol Extra Strength) 500 Mg Tab, 1,000 MG PO Q6H PRN for HEADACHE, (Reported) Trazodone HCl (Trazodone HCl) 100 Mg Tab, 100 MG PO QHS PRN for INSOMNIA, (Reported) Allergies Coded Allergies: No Known Allergies (Unverified , 07/14/18) MELISSA PUGH DO Nov 09, 2018 8:58 am
[2018-11-09] MEDS ORDERED: VENL75CA47 PO (09:00)
[2018-11-09] MEDS ORDERED: ARIP10TAB PO (09:00)
[2018-11-09] MEDS ORDERED: TRAZ10TA PO (09:00)
--- NOTE | 2018-11-09 09:57 | MHIPN ---
DATE: 11/08/2018 CHIEF COMPLAINT: Feels okay. SUBJECTIVE: Is seen for followup in the presence of staff. Says feels okay, had a good night, has been eating well. MENTAL STATUS EXAMINATION: Neat. Somewhat guarded, superficially cooperative. No agitation. No psychomotor retardation. Affect is restricted in range. He is coherent. Denies any suicidal thoughts or intents. No homicidal ideas or intents. Currently, no evidence of psychosis. ASSESSMENT: 1. Major depressive disorder, recurrent, severe. 2. Generalized anxiety disorder. He remains guarded, superficially cooperative. Continue current care and observation and look at obtaining collateral information, as the patient has been quite guarded. VITAL SIGNS: Blood pressure 118/54, pulse 65, temperature 97.7.
== END 2018-11-09 12:50 | disposition home or self-care (01) | DRG 885 ==
LOC: M ED 22:51 → M ED INP 11-04 01:07 → M PSY 11-04 01:48
PROVIDERS: ADMIT Psychiatry & Neurology Psychiatry; ATTEND Psychiatry & Neurology Psychiatry
DX: F33.2 Major depressive disorder, recurrent severe without psychotic features (principal); F41.1 Generalized anxiety disorder; Z79.899 Other long term (current) drug therapy; G47.00 Insomnia, unspecified